=== PATIENT | female | born 2000 | race Caucasian/White ===

== ENCOUNTER 2023-09-21 08:09 | Outpatient (CLI) | payer OTHER, SELFPAY | END 2023-09-21 08:10 | disposition home or self-care (01) | PROVIDERS: Visit Provider Family Medicine | DX: Z00.00 Encounter for general adult medical examination without abnormal findings (principal); E66.9 Obesity, unspecified; E78.00 Pure hypercholesterolemia, unspecified; F41.8 Other specified anxiety disorders | CPT/HCPCS: 80053; 80061; 84443 ==

== ENCOUNTER 2024-07-21 19:41 | Outpatient (CLI) | payer OTHER, SELFPAY ==
--- NOTE | 2024-07-29 11:52 | W.PM.SLEEP ---
Sleep Study Details Details Interpreting Provider: Kirill Date of Sleep Study: 07/21/24 Sleep Study Details: STUDY TYPE:? Home unattended ? BMI:? Not available ORDERING PROVIDER:Belén Roy INDICATION:? Concern about sleep apnea ? SLEEP SUMMARY:? 448 minutes monitored RESPIRATORY SUMMARY:? AHI 12.9, supine 40.9, upright 4.6, right lateral 7.5 Low oxygen 84 6.1% of study oxygen less than 90% Snoring 59% PERIODIC LIMB MOVEMENTS OF SLEEP:? Not recorded CARDIAC:? Range 22-94, mean 63.8 IMPRESSION:? Bradycardia with a rate as low as 22 beats per minute was noted Mild obstructive sleep apnea with supine position dependency. Significant hypo oxygenation RECOMMENDATION: Further cardiac evaluation may be indicated for the bradycardia For the sleep apnea weight loss is recommended. Treatment options include CPAP, dental appliance and/or airway expansion surgery.
== END 2024-07-21 19:42 | disposition home or self-care (01) ==
LOC: SLEEP 19:42
PROVIDERS: PCP Family Medicine; Visit Provider Otolaryngology
DX: G47.33 Obstructive sleep apnea (adult) (pediatric) (principal); R00.1 Bradycardia, unspecified
CPT/HCPCS: 95806

== ENCOUNTER 2024-07-31 12:53 | Outpatient (CLI) | payer OTHER, SELFPAY | END 2024-07-31 12:54 | disposition home or self-care (01) | LOC: LKVREF 12:55 | PROVIDERS: PCP Family Medicine; Visit Provider Family Medicine | DX: E66.9 Obesity, unspecified (principal); R53.83 Other fatigue; R00.1 Bradycardia, unspecified | CPT/HCPCS: 80053; 84443 ==